=== PATIENT | male | born 1975 | race Caucasian/White ===

== ENCOUNTER 2021-12-17 13:38 | Emergency (ER) | payer OTHER ==
--- NOTE | 2021-12-17 13:53 | ED Physician Documentation ---
PD HPI DYSPNEA - Stated complaint Stated Complaint: SOA - Chief complaint Chief Complaint: Cardiac - History obtained from History obtained from: Patient - History of Present Illness Timing - onset: How many days ago (3) Timing - onset during: Light activity (noted some chest pressure/pain over the past 3 days. Initially with light activity but has been more intermittent. He h as done yard work/activities without problems. Was on roof doing light repair yesterday and felt slight dizzy but no vertigo/spinning per se.) Timing - duration: Days (3) Timing - details: Gradual onset, Waxing and waning (he states feeling better/less symptoms today than yesterday but still concerned that not gone.) Inciting event(s): No: URI Improved by: No: Rest, Sitting up Worsened by: No: Exertion, Laying flat Associated symptoms: Chest pain / discomfort, Other (states feeling anxious and stressed lately. Works at home and has been busy.). No: Fever, Cough, Wheezing, Palpitations, Bilateral edema Similar symptoms before: Has not had sx before Recently seen: Not recently seen Review of Systems Constitutional: reports: Fatigue (mild for the past few days.). denies: Fever, Chills, Myalgias Nose: denies: Rhinorrhea / runny nose, Congestion Throat: denies: Sore throat Cardiac: reports: Chest pain / pressure. denies: Palpitations, Pedal edema, Calf pain Respiratory: denies: Dyspnea, Cough, Wheezing GI: denies: Abdominal Pain, Nausea, Vomiting, Diarrhea Musculoskeletal: denies: Neck pain, Back pain, Extremity swelling Neurologic: denies: Generalized weakness, Near syncope, Confused, Altered mental status, Headache Psychiatric: reports: Anxiety (recently) Endocrine: denies: Weight loss, Weight gain PD PAST MEDICAL HISTORY - Past Medical History Cardiovascular: None Respiratory: None Neuro: None Endocrine/Autoimmune: None - Present Medications Home Medications: Ambulatory Orders Medication Instructions Recorded Confirmed Sucralfate [Carafate] 1 gm PO ACHS #20 tablet 12/17/21 - Allergies Allergies/Adverse Reactions: Allergies Allergy/AdvReac Type Severity Reaction Status Date / Time morphine Allergy Emesis Verified 12/17/21 13:51 - Living Situation Living Situation: reports: With spouse/s.o. Living Arrangement: reports: At home - Social History Does the pt smoke?: No Does the pt have substance abuse?: No - Family History Family history: reports: CAD Results - Vitals Vitals: Vital Signs - 24 hr 12/17/21 12/17/21 12/17/21 13:45 14:53 15:29 Temperature 36.7 C Heart Rate 69 62 70 Respiratory 20 15 13 Rate Blood Pressure 133/86 H 127/95 H 113/80 O2 Saturation 98 94 97 12/17/21 16:01 Temperature Heart Rate 68 Respiratory 18 Rate Blood Pressure 118/83 H O2 Saturation 98 Oxygen O2 Source Room air - EKG (time done) 13:58 Rate: Rate (enter#) (65) Rhythm: NSR [place]: Normal Intervals: Normal [place] QRS: Normal Ischemia: Normal ST segments. No: ST elevation c/w ischemia, ST depression Compare to prior EKG: Old EKG unavailable - Labs Labs: Laboratory Tests 12/17/21 12/17/21 12/17/21 14:25 14:25 14:25 WBC 8.6 RBC 5.33 Hgb 15.2 Hct 45.8 MCV 85.9 MCH 28.5 MCHC 33.2 RDW 13.4 Plt Count 285 MPV 11.1 Neut # (Auto) 5.6 Lymph # (Auto) 2.3 [place] # (Auto) 0.5 Eos # (Auto) 0.1 Baso # (Auto) 0.1 Absolute Nucleated RBC 0.00 Nucleated RBC % 0.0 Sodium 136 Potassium 3.7 Chloride 103 Carbon Dioxide 26 Anion Gap 7.0 BUN 17 Creatinine 0.9 Estimated GFR (MDRD) 90 Glucose 92 Calcium 9.2 Total Bilirubin 0.7 AST 21 ALT 34 Alkaline Phosphatase 78 Troponin I High Sens 3.3 Total Protein 7.6 Albumin 4.4 Globulin 3.2 Albumin/Globulin Ratio 1.4 Lipase 44 - Rads (name of study) chest xray Radiology: Prelim report reviewed (no acute process), See rad report PD MEDICAL DECISION MAKING - ED course Complexity details: reviewed results (Basic tests are normal without any signs of more significant cause.), re-evaluated patient (He had moderate improvement with a GI cocktail suggesting some element of esophagitis.), considered differen tial (chest discomfort for 3 days, not exertionally patterned. Not assoc with eating. No URI symptoms but does feel general malaise. ), d/w patient Departure - Departure Disposition: 01 Home, Self Care Clinical Impression: Tightness in chest, Esophagitis Condition: Stable Record reviewed to determine appropriate education?: Yes Prescriptions: Sucralfate [Carafate] 1 gm PO ACHS #20 tablet Comments: Your EKG, chest x-ray, blood tests are normal without any signs of more significant cause such as heart attack, heart failure, collapsed lung, fluid in the lung, pneumonia, pancreatitis. It is possible he may be having some esophageal irritation. In addition to your normal omeprazole, I would add sucralfate 4 times daily for the next 5 days. Antacid in addition if needed. Recheck if not improved completely over the next few days and return if worsening symptoms. Follow-up with your primary care. Discharge Date/Time: 12/17/21 16:01
[2021-12-17 14:42] LABS: BASOPHILS # (AUTO) 0.1 10^3/uL (0.0-0.1); BASOPHILS % (AUTO) 0.7 %; EOSINOPHILS # (AUTO) 0.1 10^3/uL (0.0-0.7); EOSINOPHILS % (AUTO) 1.5 %; HCT - HEMATOCRIT 45.8 % (42.0-52.0); HGB - HEMOGLOBIN 15.2 g/dL (14.0-18.0); LYMPHOCYTES # (AUTO) 2.3 10^3/uL (1.5-3.5); LYMPHOCYTES % (AUTO) 26.9 %; MEAN CORPUSCULAR HEMOGLOBIN 28.5 pg (27.0-31.0); MEAN CORPUSCULAR HGB CONC 33.2 g/dL (32.0-36.0); MEAN CORPUSCULAR VOLUME 85.9 fL (80.0-94.0); MEAN PLATELET VOLUME 11.1 fL (7.4-11.4); MONOCYTES # (AUTO) 0.5 10^3/uL (0.0-1.0); MONOCYTES % (AUTO) 5.8 %; NEUTROPHILS # (AUTO) 5.6 10^3/uL (1.5-6.6); NEUTROPHILS % (AUTO) 64.8 %; PLT - PLATELET COUNT 285 10^3/uL (130-450); RED BLOOD COUNT 5.33 10^6/uL (4.70-6.10); RED CELL DISTRIBUTION WIDTH 13.4 % (12.0-15.0); WHITE BLOOD COUNT 8.6 x10^3/uL (4.8-10.8)
--- NOTE | 2021-12-17 14:51 | XRAY Report ---
PROCEDURE: Chest 1 View X-Ray INDICATIONS: Chest pain COMMENTS: Chest pain/ Pt states px and pressure PRIORS: none TECHNIQUE: One view of the chest was acquired. COMPARISON: None FINDINGS: Surgical changes and devices: None. Lungs and pleura: No pleural effusions or pneumothorax. Lungs are clear. Mediastinum: Mediastinal contours appear normal. Heart size is normal. Bones and chest wall: No suspicious bony lesions. Overlying soft tissues appear unremarkable. IMPRESSION: No acute cardiopulmonary abnormality. Reviewed by: Rufino Orozco on 12/17/2021 2:50 PM PDT Approved by: Rufino Orozco on 12/17/2021 2:50 PM PDT Station ID: [id number]
[2021-12-17 15:02] LABS: ALBUMIN 4.4 g/dL (3.2-5.5); ALBUMIN/GLOBULIN RATIO 1.4 (1.0-2.2); BILIRUBIN,TOTAL 0.7 mg/dL (0.2-1.0); CALCIUM 9.2 mg/dL (8.5-10.3); CREATININE 0.9 mg/dL (0.6-1.2); POTASSIUM 3.7 mmol/L (3.5-5.0); TOTAL PROTEIN 7.6 g/dL (6.7-8.2)
[2021-12-17] MEDS ORDERED: MAG HYDROX/AL HYDROX/SIMETH 30 ML UDC PO STA (15:21)
[2021-12-17] MEDS ORDERED: LIDOCAINE VISCOUS 2% 15 ML UDC MM STA (15:21)
[2021-12-17 16:01] VITALS: BP 118/83
== END 2021-12-17 16:01 | disposition home or self-care (01) ==
LOC: ED 13:38
DX: K20.90 Esophagitis, unspecified without bleeding (principal); R07.9 Chest pain, unspecified
CPT/HCPCS: 36415; 71045; 80053; 83690; 84484; 85025; 93005; 99284; A9270

== ENCOUNTER 2022-05-26 09:58 | Emergency (ER) | payer OTHER ==
--- NOTE | 2022-05-26 11:15 | XRAY Report ---
PROCEDURE: Foot 3 View LT INDICATIONS: Trauma TECHNIQUE: 3 views of the foot were acquired. COMPARISON: None FINDINGS: Bones: No fractures or dislocations. No suspicious bony lesions. Mild hallux valgus deformity. Soft tissues: No tibiotalar joint effusion. Achilles tendon appears normal. IMPRESSION: No visualized acute fracture or dislocation. However, occult injury cannot be excluded. Recommend desire rt interval imaging follow-up in 7-10 days as clinically indicated for additional evaluation. Reviewed by: Ebony Alvarez MD on 05/26/2022 11:13 AM PST Approved by: Ebony Alvarez MD on 05/26/2022 11:13 AM [facility] Station ID: [id number]
--- NOTE | 2022-05-26 11:55 | ED Physician Documentation ---
PD HPI LOWER EXT INJURY - Stated complaint Stated Complaint: GLF/LT BIG TOE PX - Chief complaint Chief Complaint: Trauma Ext - History obtained from History obtained from: Patient - History of Present Illness PD HPI LOW EXT INJURY LOCATION: Left, Toe (he states was walking down steps and his dog got under foot, causing him to miss step and jamm great toe to ground, with hyperextensnion. Pain at base of great toe.) Type of injury: Fall, Twist Where injury occurred: Home Timing - onset: Last night Timing - details: Abrupt onset, Still present Worsened by: Moving, Palpating Associated symptoms: Swelling, Discolored. No: Weakness, Numbness Review of Systems Skin: denies: Abrasion (s), Laceration (s) Neurologic: denies: Numbness PD PAST MEDICAL HISTORY - Past Medical History Cardiovascular: None Respiratory: None Neuro: None Endocrine/Autoimmune: None GI: GERD Musculoskeletal: Other (no history of gout) - Past Surgical History Past Surgical History: Yes Ortho: Other - Present Medications Home Medications: Ambulatory Orders Medication Instructions Recorded Confirmed Omeprazole 40 mg PO DAILY 05/26/22 05/26/22 Pregabalin [Lyrica] 75 mg PO DAILY 05/26/22 05/26/22 - Allergies Allergies/Adverse Reactions: Allergies Allergy/AdvReac Type Severity Reaction Status Date / Time morphine Allergy Emesis Verified 05/26/22 10:33 - Social History Does the pt smoke?: No Smoking Status: Never smoker Does the pt drink ETOH?: Yes Does the pt have substance abuse?: No - POLST Patient has POLST: No PD ED PE NORMAL - Vitals Vital signs reviewed: Yes - General General: Alert and oriented X 3, Well developed/nourished - Derm Derm: Normal color, Warm and dry, Other (good color and cap refill at nailbed. ) - Extremities Extremities: Other (great toe with tenderness at ip joint and some at mtp dorsally. No bruising nor notable edema. ) Results - Vitals Vitals: Oxygen O2 Source Room air - Rads (name of study) toes right Radiology: Prelim report reviewed, EMP read indepedently (no fractures. ), See rad report PD Medical Decision Making - ED course Complexity details: considered differential (hyperextnesion of toe with pain. no gross laxity. He declines post-op shoe or such. got xray to evaluate for fracture. I reviewed the xray and nof racture seen. ), d/w patient Departure - Departure Disposition: 01 Home, Self Care Clinical Impression: Toe sprain Qualifiers: Encounter type: initial encounter Qualified Code(s): S93.509A - Unspecified sprain of unspecified toe(s), initial encounter Condition: Stable Record reviewed to determine appropriate education?: Yes Instructions: ED Sprain Toe Comments: Your x-ray is normal without any signs of fracture. Examination of your toe does not show any obvious laxity of the ligaments. I think it is mild to mid sprain without complete tearing of the ligaments or muscle. Therefore activity as tolerated is reasonable. Ice elevate and rested often today. Tylenol and/or ibuprofen if needed for pains. I would anticipate improvement over the next 2 or 3 days and resolution by a week. The biggest emphasis today will be decreasing swelling. Discharge Date/Time: 05/26/22 12:36
[2022-05-26 12:37] VITALS: BP 145/88
== END 2022-05-26 12:36 | disposition home or self-care (01) ==
LOC: ED 09:58
DX: S93.502A Unspecified sprain of left great toe, initial encounter (principal); W23.0XXA Caught, crushed, jammed, or pinched between moving objects, initial encounter; Y92.009 Unspecified place in unspecified non-institutional (private) residence as the place of occurrence of the external cause
CPT/HCPCS: 99283

== ENCOUNTER 2022-10-09 15:52 | Emergency (ER) | payer OTHER ==
[2022-10-09 16:22] LABS: BASOPHILS # (AUTO) 0.1 10^3/uL (0.0-0.1); BASOPHILS % (AUTO) 0.7 %; EOSINOPHILS # (AUTO) 0.2 10^3/uL (0.0-0.7); EOSINOPHILS % (AUTO) 2.3 %; HCT - HEMATOCRIT 44.1 % (42.0-52.0); HGB - HEMOGLOBIN 14.4 g/dL (14.0-18.0); LYMPHOCYTES % (AUTO) 24.1 %; MEAN CORPUSCULAR HEMOGLOBIN 28.5 pg (27.0-31.0); MEAN CORPUSCULAR HGB CONC 32.7 g/dL (32.0-36.0); MEAN CORPUSCULAR VOLUME 87.2 fL (80.0-94.0); MONOCYTES # (AUTO) 0.6 10^3/uL (0.0-1.0); MONOCYTES % (AUTO) 6.7 %; NEUTROPHILS # (AUTO) 5.5 10^3/uL (1.5-6.6); NEUTROPHILS % (AUTO) 65.6 %; PLT - PLATELET COUNT 291 10^3/uL (130-450); RED BLOOD COUNT 5.06 10^6/uL (4.70-6.10); RED CELL DISTRIBUTION WIDTH 13.6 % (12.0-15.0); WHITE BLOOD COUNT 8.4 x10^3/uL (4.8-10.8)
[2022-10-09 16:36] LABS: ALBUMIN 4.1 g/dL (3.2-5.5); ALBUMIN/GLOBULIN RATIO 1.4 (1.0-2.2); BILIRUBIN,TOTAL 0.6 mg/dL (0.2-1.0); CALCIUM 8.8 mg/dL (8.5-10.3); CREATININE 1.3 mg/dL (0.6-1.2)
[2022-10-09 17:33] LABS: BILIRUBIN,URINE NEGATIVE (NEGATIVE); GLUCOSE, URINE (UA) NEGATIVE (NEGATIVE); KETONES,URINE (UA) NEGATIVE (NEGATIVE); LEUKOCYTE ESTERASE, URINE NEGATIVE (NEGATIVE); NITRITE,URINE NEGATIVE (NEGATIVE); OCCULT BLOOD,URINE NEGATIVE (NEGATIVE); PROTEIN,URINE NEGATIVE (NEGATIVE); UROBILINOGEN,URINE 0.2 (NORMAL) E.U./dL (NORMAL)
--- NOTE | 2022-10-09 17:34 | ED Physician Documentation ---
History of Present Illness - Stated complaint Stated Complaint: ABD PX - Chief complaint Chief Complaint: Abd Pain - Additonal information Additional information: 47-year-old male presents emergency department for evaluation of 2 weeks right upper quadrant abdominal pain. States that the pain has waxed and waned in intensity over this time. Typically gets worse after eating. No fevers or vomiting. No urinary symptoms. States that when he was in [place] about 2 years ago he was told that he had a gallbladder operating at 20% but because the symptoms were mild he decided to delay surgery. Review of Systems Constitutional: denies: Fever Nose: reports: Reviewed and negative Cardiac: reports: Reviewed and negative Respiratory: reports: Reviewed and negative GI: reports: Abdominal Pain. denies: Nausea, Vomiting, Diarrhea, Hematemesis : reports: Reviewed and negative Skin: reports: Reviewed and negative PD PAST MEDICAL HISTORY - Past Medical History Cardiovascular: None Respiratory: None Neuro: None Endocrine/Autoimmune: None GI: GERD Musculoskeletal: Other (no history of gout) - Past Surgical History Past Surgical History: Yes Ortho: Other - Present Medications Home Medications: Ambulatory Orders Medication Instructions Recorded Confirmed Omeprazole 40 mg PO DAILY 05/26/22 10/09/22 Pregabalin [Lyrica] 150 mg PO DAILY 05/26/22 10/09/22 Ibuprofen [Advil] 800 mg PO Q8HR PRN 10/09/22 10/09/22 Pantoprazole Sodium [Protonix] 40 mg PO DAILY #30 tab 10/09/22 - Allergies Allergies/Adverse Reactions: Allergies Allergy/AdvReac Type Severity Reaction Status Date / Time morphine Allergy Emesis Verified 10/09/22 15:58 - Social History Does the pt smoke?: No Smoking Status: Never smoker Does the pt drink ETOH?: Yes Does the pt have substance abuse?: No - POLST Patient has POLST: No PD ED PE NORMAL - General General: Alert and oriented X 3, No acute distress - HEENT HEENT: Atraumatic - Neck Neck: Supple, no meningeal sign - Cardiac Cardiac: RRR, No murmur - Respiratory Respiratory: No respiratory distress, Clear bilaterally - Abdomen Abdomen: Normal bowel sounds, Soft. No: Non tender (Mild tenderness in the right upper quadrant with an equivocal Rossi's. 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 Eye Opening: Spontaneous Motor: Obeys Commands Verbal: Oriented GCS Score: 15 Results - Vitals Vitals: Vital Signs - 24 hr 10/09/22 10/09/22 10/09/22 15:58 17:37 18:22 Temperature 36.5 C Heart Rate 73 66 74 Respiratory 18 18 16 Rate Blood Pressure 135/82 H 150/98 H 101/89 H O2 Saturation 98 99 100 Oxygen O2 Source Room air - Labs Labs: Laboratory Tests 10/09/22 10/09/22 10/09/22 16:18 16:18 17:25 WBC 8.4 RBC 5.06 Hgb 14.4 Hct 44.1 MCV 87.2 MCH 28.5 MCHC 32.7 RDW 13.6 Plt Count 291 MPV 11.0 Neut # (Auto) 5.5 Lymph # (Auto) 2.0 [place] # (Auto) 0.6 Eos # (Auto) 0.2 Baso # (Auto) 0.1 Absolute Nucleated RBC 0.00 Nucleated RBC % 0.0 Sodium 138 Potassium 4.0 Chloride 105 Carbon Dioxide 27 Anion Gap 6.0 BUN 21 H Creatinine 1.3 H Estimated GFR (MDRD) 59 L Glucose 104 H Calcium 8.8 Total Bilirubin 0.6 AST 30 ALT 58 Alkaline Phosphatase 85 Total Protein 7.0 Albumin 4.1 Globulin 2.9 Albumin/Globulin Ratio 1.4 Lipase 43 Urine Color YELLOW Urine Clarity CLEAR Urine pH 7.0 Ur Specific [place] 1.020 Urine Protein NEGATIVE Urine Glucose (UA) NEGATIVE Urine Ketones NEGATIVE Urine Occult Blood NEGATIVE Urine Nitrite NEGATIVE Urine Bilirubin NEGATIVE Urine Urobilinogen 0.2 (NORMAL) Ur Leukocyte Esterase NEGATIVE Ur Microscopic Review NOT INDICATED Urine Culture Comments NOT INDICATED - Rads (name of study) abd US Relevant Findings:: Other (Negative ultrasound. No abnormality seen. No gallbladder wall thickening. No gallstones. CBD is not dilated. No pericholecystic fluid. No evidence of choledocholithiasis) CT abd Relevant Findings:: Final report received (CT of the abdomen and pelvis without acute abnormalities. Normal appendix. Colonic diverticulosis without acute diverticulitis. No evidence for obstructive uropathy. Small fat-containing umbilical and bilateral inguinal hernias without evidence of acute inflammation. ) PD Medical Decision Making - ED course Complexity details: reviewed results, re-evaluated patient, considered differential, d/w patient ED course: 47-year-old male presents emergency department for evaluation of 2 weeks right upper quadrant abdominal pain. Some nausea but no vomiting. Reports that number of years ago he was told that his gallbladder needed to be removed. He denies melena or hematochezia. He does report drinking a lot of coffee using Motrin daily as well as typically drinking a beer at night. On exam he did have some tenderness in the epigastrium and right upper quadrant though no guarding or rebound. I did obtain CBC, electrolytes and urinalysis. Per my interpretation no acute worrisome findings. Subsequently an abdominal ultrasound was completed which did not show any findings to suggest cholelithiasis or choledocholithiasis. It was read as unremarkable by the radiologist. Finally CT of the abdomen which was completed to evaluate for the possible Concern of acute appendicitis ureter colic or renal colic was obtained and again shows no acute intra abdominal findings though there was incidental findings made of an umbilical and inguinal hernias. On reevaluation the patient continues to have pain in the epigastrium and right upper quadrant. As such given the negative labs and imaging I suspect that he may have gastritis, GERD or duodenitis. Patient was given a single dose of Protonix 40 mg IV push here in the emergency department as well as lidocaine and Maalox. On reevaluation is feeling better. He is advised to follow closely with his PCP. We will start Protonix daily. Advised to discontinue Motrin until he has an EGD for further evaluation to rule out erosions. The usual emergent return precautions were discussed for worsening symptoms Departure - Departure Disposition: 01 Home, Self Care Clinical Impression: Right upper quadrant abdominal pain Condition: Stable Instructions: ED PUD Vs Gastritis, ED Epigastric Pain UKO Prescriptions: Pantoprazole Sodium [Protonix] 40 mg PO DAILY #30 tab Comments: As discussed at the bedside the labs today did not show any worrisome findings. An abdominal ultrasound shows no evidence of gallstones or concerns with your biliary tree. CT of the abdomen also did not show any findings suggest Deneen cystitis, appendicitis, renal or ureter colic. I suspect that the cause of your pain is likely a gastritis. I do recommend that you stop taking Motrin for pain. I do recommend Tylenol otherwise. I would like you to start taking Protonix 40 mg daily. If you are able to curtail your use of coffee and beer. Please discuss this ED visit with your primary care doctor. You would benefit from referral for an endoscopy to look for erosions in the esophagus stomach and duodenum. You may also find some relief of the discomfort by taking Tums tablets as needed or using Maalox. Return immediately to the ER if you develop any black or bloody stools, have fainting or other acute conditions otherwise
[2022-10-09 17:35] LABS: CLARITY,URINE CLEAR (CLEAR)
[2022-10-09] MEDS ORDERED: SODIUM CHLORIDE 0.9% 1,000 ML IV STA (17:45)
[2022-10-09] MEDS ORDERED: iohexoL-300 100 ML VIAL ONE (18:00)
[2022-10-09] MEDS ORDERED: iohexoL-300 100 ML VIAL IVP ONE (18:38)
--- NOTE | 2022-10-09 19:24 | CT Report ---
PROCEDURE: ABDOMEN/PELVIS W INDICATIONS: RUQ abd pain CONTRAST: 100ml omni 300 TECHNIQUE: After the administration of intravenous contrast, 5 mm thick sections acquired from the diaphragms to the symphysis. 5 mm thick coronal and sagittal reformats were acquired. For radiation dose reducti on, the following was used: automated exposure control, adjustment of mA and/or kV according to bailey ent size. COMPARISON: None FINDINGS: Image quality: Excellent. Lung bases and heart: Bibasilar atelectasis. Heart size is normal. Liver: Hepatic steatosis. Gallbladder and biliary tree: No radiopaque stones or wall thickening. No biliary dilation. Spleen: No splenomegaly. Pancreas: No pancreatic ductal dilation. Adrenals: No adrenal nodule. Kidneys and ureters: No hydronephrosis. No renal cystic lesion which requires follow up. No solid mas s. Bilateral ureters are normal in course and caliber. Bowel and peritoneum: No bowel distension. No pathologic free fluid. Diverticulosis without evidence of diverticulitis. Normal appendix. Lymph nodes: No central or retroperitoneal adenopathy. Vessels: No infrarenal aortic aneurysm. Mild atherosclerotic calcifications. PELVIS Reproductive organs: Unremarkable. Bladder: No abnormal wall thickening, accounting for underdistension. Pelvic lymph nodes: No pelvic adenopathy by size criteria. Bones: No aggressive osseous abnormality. Other: Small fat-containing umbilical and bilateral inguinal hernias without acute inflammation. IMPRESSION: CT abdomen and pelvis without acute abnormalities. Normal appendix. Colonic diverticulosis without ac omari diverticulitis. No evidence for obstructive uropathy. Small fat-containing umbilical and bilateral inguinal hernias without evidence for acute inflammation . Reviewed by: Shakeel Coffman MD on 10/09/2022 6:23 PM [facility] Approved by: Shakeel Coffman MD on 10/09/2022 6:23 PM [facility] Station ID: [id number]
--- NOTE | 2022-10-09 19:26 | Ultrasound Report ---
PROCEDURE: Abdomen Limited INDICATIONS: RUQ abd pain TECHNIQUE: Real-time focused scanning was performed of the abdomen, with image documentation. COMPARISONS: None. FINDINGS: Liver: Liver is normal in size and homogeneous in echotexture. Gallbladder: Gallbladder is normal in appearance. No gallstones. No wall thickening. No pericholecyst ic fluid. No abnormal sonographic Rossi's sign. Biliary ducts: Intrahepatic bile ducts are non-dilated. Extrahepatic bile duct caliber measures 4 m m. Normal is 6-7 mm or less in diameter, or 10 mm or less post-cholecystectomy. Pancreas: Visualized portions of the pancreas are sonographically normal. Right kidney: Normal in size and echotexture. Right kidney measures 10.9 cm long. No hydronephrosis or nephrolithiasis. No solid masses. No complex renal cystic lesions which require follow-up. Aorta: Visualized aorta is normal in caliber at less than 3 cm. IVC: Intrahepatic inferior vena cava is patent. Miscellaneous: No free abdominal fluid. IMPRESSION: Unremarkable abdominal ultrasound. Reviewed by: Shakeel Coffman MD on 10/09/2022 6:25 PM YO Approved by: Shakeel Coffman MD on 10/09/2022 6:25 PM YO Station ID: [id number]
[2022-10-09] MEDS ORDERED: PANTOPRAZOLE 40 MG VIAL IVP STA (19:43)
[2022-10-09] MEDS ORDERED: MAG HYDROX/AL HYDROX/SIMETH 30 ML UDC PO STA (19:43)
[2022-10-09] MEDS ORDERED: LIDOCAINE VISCOUS 2% 15 ML ORAL SYRINGE MM STA (19:43)
[2022-10-09 20:06] VITALS: BP 114/62
== END 2022-10-09 20:01 | disposition home or self-care (01) ==
LOC: ED 15:52
DX: R10.11 Right upper quadrant pain (principal)
CPT/HCPCS: 36415; 74177; 76705; 80053; 81003; 83690; 85025; 96374; 99284; A9270; Q9967; 81001; 87086